=== PATIENT | female | born 1995 | race Caucasian/White ===

== ENCOUNTER → 2020-05-07 | Emergency (ER) | payer BC, OTHER ==
[~2020-05-07] VITALS: Ht 160 cm; Wt 79.4 kg
[~2020-05-07] MED LIST: CEPH500T PO; RX-OXYCODONE/APAP 5-325 MG #4 TAB PK PO ONE; TETANUS,DIPTH,PERTUSS P/F (BOOSTRIX) 0.5 ML VIAL IM ONE
[2020-05-07 20:42] VITALS: BP 134/93
--- OUTSIDE RECORDS SUMMARY | 2020-05-07 21:35 | XMS REPORT | Continuity of Care Document ---
Demographics Preferred Language Unknown Marital Status Unknown Worship Affiliation Unknown Race Unknown Ethnic Group Unknown Author Author [facility] Organization [facility] [employer] Address Unknown Phone Unavailable Allergies There is no data. Medications There is no data. Problems There is no data. Procedures There is no data. Results There is no data. Encounters There is no data.
--- NOTE | 2020-05-07 21:38 | Diagnostic Imaging Report ---
INDICATION: Patient ripped toenail while moving a box. FINDINGS: AP view of the right foot and 2 views of the great toe demonstrate partial avulsion of the toenail from the great toe. No fractures are identified. IMPRESSION: There is partial avulsion of the toenail from the great toe. No fractures are present. Dictated by: Dictated on workstation # [id number]
--- NOTE | 2020-05-07 21:42 | ED Lower Extremity ---
General Chief Complaint: Lower Extremity Stated Complaint: R BIG TOE PAIN Nursing Triage Note: PT TO TRIAGE VIA W/C THEN TRANSFERRED SELF TO CHAIR. PT REPORTS RIGHT GREAT TOE PAIN. PT STATES STUBBED TOE ON TELEVISION THAT SHE WAS HELPING TO MOVE AND REMOVED PART OF TOE NAIL. PT STATES THAT "IT DOESN'T REALLY HURT" AND THAT IT IS "MORE THE SIGHT OF IT". RIGHT GREAT TOE IS BLEEDING AND NAIL IS RAISED. Nursing Sepsis Screen: No Definite Risk History of Present Illness Date Seen by Provider: May 07, 2020 Time Seen by Provider: 20:50 Initial Comments 24-year-old female presents for left great toe pain. She stubbed her toe on a television. There is a bulge in of the great toenail. Unsure of her last tetanus vaccine. No other injuries reported. Onset: just prior to arrival Pain/Injury Location: right 1st toe Method of Injury: direct blow Allergies and Home Medications Allergies Coded Allergies: hydrocodone (Verified Allergy, Unknown, 05/07/20) Home Medications Cephalexin 500 Mg Tablet, 500 MG PO QID Prescribed by: GILES BOB on 05/07/200 Patient Home Medication List Home Medication List Reviewed: Yes Review of Systems Constitutional: no symptoms reported, see HPI Musculoskeletal: see HPI, joint pain (right great toe IP joint) Skin: no symptoms reported, see HPI All Other Systems Reviewed Negative Unless Noted: Yes Past Prrfbpd-Lkzebf-Cuxebp Hx Past Med/Social Hx: Reviewed Nursing Past Med/Soc Hx Patient Social History Alcohol Use: Occasionally Uses Recreational Drug Use: No Smoking Status: Never a Smoker 2nd Hand Smoke Exposure: No Recent Foreign Travel: No Contact w/Someone Who Travel: No Recent Infectious Disease Expo: No Recent Hopitalizations: No Physical Abuse: No Sexual Abuse: No Mistreated: No Fear: No Seasonal Allergies Seasonal Allergies: Yes Past Medical History Surgeries: Yes (TUMOR REPOVED FROM RIGHT BREAST) Adenoidectomy, Appendectomy, Tonsillectomy Respiratory: No Cardiac: No Neurological: No Genitourinary: No Gastrointestinal: No Musculoskeletal: No Endocrine: No HEENT: No Cancer: No Psychosocial: Yes ADD/ADHD Integumentary: No Blood Disorders: No Physical Exam Vital Signs Vital Signs - First Documented 05/07/20 20:42 Temp 36.9 Pulse 89 Resp 22 B/P (MAP) 134/93 (107) O2 Delivery Room Air Capillary Refill : Less Than 3 Seconds Height, Weight, BMI Height: '" Weight: lbs. oz. kg; 31.00 BMI Method: General Appearance: WD/WN, no apparent distress Cardiovascular: normal peripheral pulses, regular rate, rhythm Respiratory: chest non-tender, lungs clear, normal breath sounds Feet: right foot normal range of motion, right foot nail injury (great toe, partially verbalization), right foot pain, right foot soft tissue tenderness Neurologic/Tendon: normal sensation, normal motor functions, normal tendon functions Neurologic/Psychiatric: no motor/sensory deficits, alert, normal mood/affect, oriented x 3 Skin: normal color, warm/dry Procedures/Interventions Wound Location: Lower Extremities (right great toe) Wound's Depth, Shape: superficial Wound Explored: clean Irrigated w/ Saline (ccs): 500 Betadine Prep?: Yes Anesthesia: 1% Lidocaine Volume Anesthetic (ccs): 10 Suture Size: 2-0 Number of Sutures: 4 Sterile Dressing Applied?: Yes Nail secured with 4 sutures. The digital block with 10 MLS of lidocaine 1%. Patient tolerated procedure well. Bulky dressing applied. Progress/Results/Core Measures Results/Orders My Orders Orders - GILES BOB Toe(S) (05/07/20 20:56) Urine Bedside (05/07/20 21:03) Tramadol Tablet (Ultram Tablet) (05/07/20 21:15) Dipht,Pertuss(Acell),Tet Adult (Boostrix (05/07/20 21:15) Medications Given in ED Current Medications Medications Dose Ordered Sig/Jessica Route Start Time Stop Time Status Last Admin Dose Admin Diphtheria/ Tetanus/Acell Pertussis 0.5 ml ONCE ONCE IM 05/07/20 21:15 05/07/20 21:16 DC 05/07/20 21:20 0.5 ML Tramadol HCl 50 mg ONCE ONCE PO 05/07/20 21:15 05/07/20 21:16 DC 05/07/20 21:19 50 MG Vital Signs/I&O 05/07/20 20:42 Temp 36.9 Pulse 89 Resp 22 B/P (MAP) 134/93 (107) O2 Delivery Room Air Blood Pressure Mean: 107 Diagnostic Imaging Diagonstic Imaging: Xray Plain Films/CT/US/NM/MRI: other (foot) Comments NAME: [facility] MED REC#: [id number] PT STATUS: REG ER : 1995 PHYSICIAN: GILES BOB ADMIT DATE: 05/07/20/ER Draft Date of Exam:05/07/20 TOE(S) INDICATION: Patient ripped toenail while moving a box. FINDINGS: AP view of the right foot and 2 views of the great toe demonstrate partial avulsion of the toenail from the great toe. No fractures are identified. IMPRESSION: There is partial avulsion of the toenail from the great toe. No fractures are present. Dictated on workstation # [id number] Dict: 05/07/202133 Trans: 05/07/202136 [facility] [id number] Interpreted by: ROBYN BERNABE Reviewed: Reviewed by Me Departure Impression Primary Impression: Laceration of right great toe with damage to nail Qualified Codes: S91.211A - Laceration without foreign body of right great toe with damage to nail, initial encounter Disposition: 01 HOME, SELF-CARE Condition: Improved Departure-Patient Inst. Decision time for Depature: 21:45 Referrals: NO,LOCAL PHYSICIAN (PCP/Family) Primary Care Physician Patient Instructions: Nail Avulsion (DC) Add. Discharge Instructions: Keep the dressing dry and in place for 24 hours, you may re-inforce if needed. Wound check in 2-3 days with your primary care provider. Do not submerge the wound in standing water (tub, pool, sink, villarreal, etc). Leave sutures in place, return to Emergency Dept or your Primary Care Provider in 10-14 days for removal. You may shower, do not have water hit directly over wound. Clean with peroxide after shower, leave open to air when at home, cover with dressing or band-aid wh en out of the house. Watch for signs of infection: Redness, increased tenderness, warmth, discolored drainage or foul smelling drainage. Take Antibiotics, as prescribed. Leave nail in place, trim as it grows out, but do not remove. Return to the emergency department for new, urgent health care problems. All discharge instructions reviewed with patient and/or family. Voiced unde rstanding. Scripts Cephalexin (Cephalexin) 500 Mg Tablet 500 MG PO QID, #20 TAB 0 Refills Prov: PAULINO,GILES CUTTING MACHINE OPERATOR 05/07/20 GILES BOB May 07, 2020 21:42
== END ==
LOC: ER 20:37
DX: S91.211A Laceration without foreign body of right great toe with damage to nail, initial encounter (principal); Z23 Encounter for immunization; Z88.5 Allergy status to narcotic agent; W22.8XXA Striking against or struck by other objects, initial encounter
CPT/HCPCS: 73660; 84703; 90715; 99283

== ENCOUNTER 2020-05-22 09:09 | Emergency (ER) | payer BC ==
[~2020-05-22] VITALS: Ht 160 cm; Wt 77.0 kg
[~2020-05-22 09:09] MED LIST changes: -RX-OXYCODONE/APAP 5-325 MG #4 TAB PK PO ONE; -TETANUS,DIPTH,PERTUSS P/F (BOOSTRIX) 0.5 ML VIAL IM ONE
[2020-05-22 09:15] VITALS: BP 0/0
--- NOTE | 2020-05-22 09:15 | NUR ---
PT DENIES NEEDING VITALS TAKEN AT THIS VISIT.
== END 2020-05-22 09:23 | disposition home or self-care (01) ==
LOC: EDUNIT# 09:09 → ER 09:11
DX: S91.111D Laceration without foreign body of right great toe without damage to nail, subsequent encounter (principal); X58.XXXD Exposure to other specified factors, subsequent encounter